=== PATIENT | female | born 1990 | race Caucasian/White ===

== ENCOUNTER → 2019-07-10 | Outpatient (CLI) | payer OTHER ==
[2019-07-11 07:06] LABS: HIV 1-2 SCREEN 4TH GEN W/RFLX Non Reactive (Non Reactive)
== END | disposition home or self-care (01) ==
LOC: LABMN 11:48
PROVIDERS: ATTEND Internal Medicine
DX: Z76.89 Persons encountering health services in other specified circumstances (principal)
CPT/HCPCS: 86803; 87340; 87389

== ENCOUNTER 2020-02-02 16:15 | Emergency (ER) | payer OTHER ==
[~2020-02-02] VITALS: Ht 172.7 cm; Wt 58.2 kg
[2020-02-02 16:18] VITALS: BP 144/61
== END 2020-02-02 17:17 | disposition home or self-care (01) ==
LOC: EMS 16:15 → EEVIPCON 16:15 → EMS 17:17
DX: Z03.818 Encounter for observation for suspected exposure to other biological agents ruled out (principal)
CPT/HCPCS: 99283; U0003

== ENCOUNTER → 2021-03-23 | Outpatient (CLI) | payer OTHER ==
[2021-03-23 08:34] LABS: BASOPHILS % (AUTO) 0.3 % (0.0-2.0); EOSINOPHILS % (AUTO) 2.2 % (1.0-6.0); HEMATOCRIT 38.1 % (36-46); HEMOGLOBIN 12.9 g/dL (12.0-16.0); LYMPHOCYTES % (AUTO) 32.9 % (22.0-44.0); MEAN CORPUSCULAR HEMOGLOBIN 31.4 pg (26.0-34.0); MEAN CORPUSCULAR HGB CONC 33.9 G/dL (31.0-37.0); MEAN CORPUSCULAR VOLUME 93 fL (80-100); MONOCYTES # (AUTO) 0.3 K/uL (0.1-1.0); MONOCYTES % (AUTO) 5.5 % (2.0-9.0); NEUTROPHILS # (AUTO) 3.6 K/uL (1.8-7.7); NEUTROPHILS % (AUTO) 59.1 % (40.0-70.0); PLATELET COUNT (AUTO) 191 K/uL (150-450); RED BLOOD CELL COUNT(AUTO) 4.11 MIL/uL (4.00-5.20); RED CELL DISTRIBUTION WIDTH 11.4 % (11.5-14.5)
[2021-03-23 09:01] LABS: FOLATE SERUM 20.4 ng/mL (5.4-)
[2021-03-23 09:11] LABS: ALANINE AMINOTRANSFERASE 21 U/L (12-78); ALBUMIN 3.7 g/dL (3.4-5.0); ALKALINE PHOSPHATASE 48 U/L (46-116); ANION GAP 11 mmol/L (8-16); ASPARTATE AMINOTRANSFERASE 13 U/L (15-37); BILIRUBIN,TOTAL 0.7 mg/dL (0.1-1.0); CALCIUM, TOTAL 8.5 mg/dL (8.8-10.5); CARBON DIOXIDE 25 mmol/L (22-29); CHLORIDE 102 mmol/L (98-107); CHOL/HDL RATIO 2.1 (3.9-5.7); CHOLESTEROL 151 mg/dL (131-200); CREATININE 0.91 mg/dL (0.60-1.30); GLOMERULAR FILTR. RATE CALC > 60 mL/min (>60); GLUCOSE,RANDOM 80 mg/dL (70-110); HDL CHOLESTEROL 72 mg/dL (40-60); LDL CHOL (CALC.) 61 mg/dL (0-130); POTASSIUM 3.6 mmol/L (3.5-5.1); SODIUM SERUM 138 mmol/L (136-145); THYROID STIMULATING HORMONE 1.46 uIU/mL (0.36-3.74); TOTAL PROTEIN, SERUM 7.2 g/dL (6.4-8.2); TRIGLYCERIDES 90 mg/dL (15-150); UREA NITROGEN, BLOOD 12 mg/dL (7-18)
== END | disposition home or self-care (01) ==
LOC: LABMN 08:14
PROVIDERS: ATTEND Internal Medicine Geriatric Medicine
DX: L70.9 Acne, unspecified (principal)
CPT/HCPCS: 80053; 80061; 82306; 82607; 82746; 84443; 85025

== ENCOUNTER → 2025-05-13 | Outpatient (CLI) | payer OTHER ==
[2025-05-13 09:11] LABS: PLATELET COUNT (AUTO) 235 K/uL (150-450); RED BLOOD CELL COUNT(AUTO) 4.69 MIL/uL (4.00-5.20); RED CELL DISTRIBUTION WIDTH 12.3 % (11.5-14.5); WHITE BLOOD COUNT (AUTO) 4.8 K/uL (4.5-11.0)
[2025-05-13 09:54] LABS: ASPARTATE AMINOTRANSFERASE 14 U/L (15-37); CALCIUM, TOTAL 9.2 mg/dL (8.8-10.5); CREATININE 0.77 mg/dL (0.60-1.30); GLOMERULAR FILTR. RATE CALC > 60 mL/min (>60); GLUCOSE,RANDOM 79 mg/dL (70-110); SODIUM SERUM 134 mmol/L (136-145); TOTAL PROTEIN, SERUM 7.2 g/dL (6.4-8.2); UREA NITROGEN, BLOOD 11 mg/dL (7-18)
[2025-05-13 10:05] LABS: CHOL/HDL RATIO 3.1 (3.9-5.7); LDL CHOL (CALC.) 113 mg/dL (0-130)
[2025-05-13 10:52] LABS: VITAMIN B12 LEVEL 781 pg/mL (211-911)
[2025-05-13 11:33] LABS: FOLATE SERUM > 24.0 ng/mL (5.4-)
== END | disposition home or self-care (01) ==
LOC: LABMN 08:41
PROVIDERS: ATTEND Internal Medicine Geriatric Medicine
DX: R10.9 Unspecified abdominal pain (principal)
CPT/HCPCS: 80053; 80061; 82150; 82607; 82746; 83036; 83690; 84443; 85025; 85610; 85730

== ENCOUNTER 2025-06-30 11:22 | Emergency (ER) | payer OTHER ==
[~2025-06-30] VITALS: Ht 172.7 cm; Wt 59.1 kg
[2025-06-30] MEDS ORDERED: METH-659 PO (13:12)
[2025-06-30] MEDS ORDERED: LIDO-57 TP (13:12)
[2025-06-30] MEDS ORDERED: NAPR-1196 PO (13:12)
[2025-06-30 13:27] VITALS: TEMP 97.9
[2025-06-30 13:45] VITALS: BP 129/78; PULSE 79; RESP 18; O2SAT 98
== END 2025-06-30 14:28 | disposition home or self-care (01) ==
LOC: EMS 11:31
DX: S16.1XXA Strain of muscle, fascia and tendon at neck level, initial encounter (principal); N89.8 Other specified noninflammatory disorders of vagina; Z79.899 Other long term (current) drug therapy; V49.40XA Driver injured in collision with unspecified motor vehicles in traffic accident, initial encounter; Y93.89 Activity, other specified; Y92.410 Unspecified street and highway as the place of occurrence of the external cause; Y99.8 Other external cause status
CPT/HCPCS: 72040; 72125; 84702; 99284